=== PATIENT | female | born 1960 | race Caucasian/White ===

== ENCOUNTER 2017-03-29 10:33 | Emergency (ER) | payer MEDICAID ==
[2017-03-29] MEDS ORDERED: Sodium Chloride 0.9% 10 ML Syringe FLUSH PRN (11:16)
[2017-03-29] MEDS ORDERED: HYDROmorphone 1 MG/ML Syringe IVPUSH ONE (11:16)
[2017-03-29] MEDS ORDERED: Ondansetron 4 MG/2 ML SDV IVPUSH ONE (11:16)
[2017-03-29] MEDS ORDERED: Dicyclomine 10 MG Cap PO ONE (11:16)
--- NOTE | 2017-03-29 11:20 | EDM.PDOC ---
ED HPI GENERAL MEDICAL PROBLEM - General Chief Complaint: Abdominal Pain Stated Complaint: RIGHT SIDE PAIN Time Seen by Provider: 03/29/17 11:06 Source of Information: Reports: Patient History Limitations: Reports: No Limitations - History of Present Illness INITIAL COMMENTS - FREE TEXT/NARRATIVE: Patient is a 56-year-old female who presents to the ED complaining of right upper quadrant pain that radiates into her back off and on since Halloween. States pain comes about with eating. No specific food or drinks that escalate the discomfort. As of recent the pain is more constant and severe in nature. Currently the pain is described as a sharp discomfort rated a 10 out of 10. She was nauseated yesterday with one episode of emesis with no blood. She denies any acid reflux. There has been no episodes of diarrhea. Notes her bowel movements have been normal pattern formed with no blood. She denies any history of similar complaints. Denies any fever, chest pain, shortness of breath, dysuria, recent sick exposures, or any additional complaints. 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 ED EXAM, GI/ABD - Physical Exam Exam: See Below Exam Limited By: No Limitations General Appearance: Alert, WD/WN, Moderate Distress Ears: Hearing Grossly Normal Nose: Normal Inspection Throat/Mouth: Normal Voice, No Airway Compromise Neck: Normal Inspection, Supple Respiratory/Chest: No Respiratory Distress, Lungs Clear, Normal Breath Sounds, No Accessory Muscle Use Cardiovascular: Normal Peripheral Pulses, Regular Rate, Rhythm, No Murmur GI/Abdominal Exam: Normal Bowel Sounds, Soft, No Organomegaly, No Distention, Tender (RUQ) Back Exam: Normal Inspection, Full Range of Motion, CVA Tenderness (R). No: CVA Tenderness (L) Extremities: Normal Inspection, Non-Tender, No Pedal Edema, Normal Capillary Refill Neurological: Alert, Oriented, CN II-XII Intact, Normal Cognition, No Motor/ Sensory Deficits Psychiatric: Normal Affect, Normal Mood Skin Exam: Warm, Dry, Intact, Normal Color Course - Vital Signs Last Recorded V/S: Last Vital Signs Temp 96.7 F 03/29/17 10:44 Pulse 77 03/29/17 10:44 Resp 19 03/29/17 10:44 BP 134/68 03/29/17 10:44 Pulse Ox 95 03/29/17 10:44 - Orders/Labs/Meds Orders: Active Orders 24 hr Category Date Time Status Peripheral IV Care [RC] . DIRECTED Care 03/29/17 11:17 Active Abdomen 2V AP Flat Upright [CR] Stat Exams 03/29/17 11:16 Taken Peripheral IV Insertion Adult [OM.PC] Stat Oth 03/29/17 11:16 Ordered Labs: Laboratory Tests 03/29/17 03/29/17 03/29/17 Range/Units 10:48 10:48 10:55 WBC 8.70 (3.98-10.04) K/mm3 RBC 4.60 (3.98-5.22) M/mm3 Hgb 13.3 (11.2-15.7) gm/L Hct 40.1 (34.1-44.9) % MCV 87.2 (79.4-94.8) fl MCH 28.9 (25.6-32.2) pg MCHC 33.2 (32.2-35.5) g/dl RDW Std Deviation 41.6 (36.4-46.3) fL Plt Count 280 (182-369) K/mm3 MPV 11.9 (9.4-12.3) fl Neut % (Auto) 71.5 H (34.0-71.1) % Lymph % (Auto) 18.2 L (19.3-51.7) % Benzie % (Auto) 8.4 (4.7-12.5) % Eos % (Auto) 1.1 (0.7-5.8) Baso % (Auto) 0.6 (0.1-1.2) % Neut # (Auto) 6.22 H (1.56-6.13) K/mm3 Lymph # (Auto) 1.58 (1.18-3.74) K/mm3 Benzie # (Auto) 0.73 H (0.24-0.36) K/mm3 Eos # (Auto) 0.10 (0.04-0.36) K/mm3 Baso # (Auto) 0.05 (0.01-0.08) K/mm3 Sodium 138 (136-145) mEq/L Potassium 4.0 (3.5-5.1) mEq/L Chloride 101 (98-107) mEq/L Carbon Dioxide 23 (21-32) mEq/L Anion Gap 18.0 H (5-15) BUN 16 (7-18) mg/dL Creatinine 1.2 H (0.55-1.02) mg/dL Est Cr Clr Drug Dosing 44.66 mL/min Estimated GFR (MDRD) 46 (>60) mL/min BUN/Creatinine Ratio 13.3 L (14-18) Glucose 140 H (74-106) mg/dL Calcium 9.8 (8.5-10.1) mg/dL Total Bilirubin 0.5 (0.2-1.0) mg/dL Direct Bilirubin (0.0-0.2) mg/dl GGT (5-55) U/L AST 26 (15-37) U/L ALT 34 (14-59) U/L Alkaline Phosphatase 97 (46-116) U/L C-Reactive Protein 1.0 (<1.0) mg/dL Total Protein 9.0 H (6.4-8.2) g/dl Albumin 3.7 (3.4-5.0) g/dl Globulin 5.3 gm/dL Albumin/Globulin Ratio 0.7 L (1-2) Lipase 106 (73-393) U/L Urine Color Yellow (Yellow) Urine Appearance Clear (Clear) Urine pH 5.5 (5.0-8.0) Ur Specific [place] > or = 1.030 (1.005-1.030) Urine Protein 2+ H (Negative) Urine Glucose (UA) Negative (Negative) Urine Ketones 1+ H (Negative) Urine Occult Blood Negative (Negative) Urine Nitrite Negative (Negative) Urine Bilirubin 2+ H (Negative) Urine Urobilinogen 1.0 (0.2-1.0) Ur Leukocyte Esterase Negative (Negative) 03/29/17 Range/Units 10:55 WBC (3.98-10.04) K/mm3 RBC (3.98-5.22) M/mm3 Hgb (11.2-15.7) gm/L Hct (34.1-44.9) % MCV (79.4-94.8) fl MCH (25.6-32.2) pg MCHC (32.2-35.5) g/dl RDW Std Deviation (36.4-46.3) fL Plt Count (182-369) K/mm3 MPV (9.4-12.3) fl Neut % (Auto) (34.0-71.1) % Lymph % (Auto) (19.3-51.7) % Benzie % (Auto) (4.7-12.5) % Eos % (Auto) (0.7-5.8) Baso % (Auto) (0.1-1.2) % Neut # (Auto) (1.56-6.13) K/mm3 Lymph # (Auto) (1.18-3.74) K/mm3 Benzie # (Auto) (0.24-0.36) K/mm3 Eos # (Auto) (0.04-0.36) K/mm3 Baso # (Auto) (0.01-0.08) K/mm3 Sodium (136-145) mEq/L Potassium (3.5-5.1) mEq/L Chloride (98-107) mEq/L Carbon Dioxide (21-32) mEq/L Anion Gap (5-15) BUN (7-18) mg/dL Creatinine (0.55-1.02) mg/dL Est Cr Clr Drug Dosing mL/min Estimated GFR (MDRD) (>60) mL/min BUN/Creatinine Ratio (14-18) Glucose (74-106) mg/dL Calcium (8.5-10.1) mg/dL Total Bilirubin (0.2-1.0) mg/dL Direct Bilirubin 0.10 (0.0-0.2) mg/dl GGT 30 (5-55) U/L AST (15-37) U/L ALT (14-59) U/L Alkaline Phosphatase (46-116) U/L C-Reactive Protein (<1.0) mg/dL Total Protein (6.4-8.2) g/dl Albumin (3.4-5.0) g/dl Globulin gm/dL Albumin/Globulin Ratio (1-2) Lipase (73-393) U/L Urine Color (Yellow) Urine Appearance (Clear) Urine pH (5.0-8.0) Ur Specific [place] (1.005-1.030) Urine Protein (Negative) Urine Glucose (UA) (Negative) Urine Ketones (Negative) Urine Occult Blood (Negative) Urine Nitrite (Negative) Urine Bilirubin (Negative) Urine Urobilinogen (0.2-1.0) Ur Leukocyte Esterase (Negative) Meds: Medications Discontinued Medications Generic Name Dose Route Start Last Admin Trade Name Freq PRN Reason Stop Dose Admin Dicyclomine HCl 10 mg 03/29/17 11:16 03/29/17 11:36 Bentyl PO 03/29/17 11:17 10 mg ONETIME ONE Administration Hydromorphone HCl 0.5 mg 03/29/17 11:16 03/29/17 11:37 Dilaudid IVPUSH 03/29/17 11:17 0.5 mg ONETIME ONE Administration Sodium Chloride 1,000 mls @ 250 mls/hr 03/29/17 11:30 03/29/17 11:36 Normal Saline IV 250 mls/hr ASDIRECTED MITA Administration Ondansetron HCl 4 mg 03/29/17 11:16 03/29/17 11:35 Zofran IVPUSH 03/29/17 11:17 4 mg ONETIME ONE Administration Sodium Chloride 10 ml 03/29/17 11:16 03/29/17 11:38 Saline Flush FLUSH 10 ml ASDIRECTED PRN Administration Keep Vein Open - Re-Assessments/Exams Free Text/Narrative Re-Assessment/Exam: IV established with normal saline 250 mls per hour, Dilaudid 0.5 mg IVP, Zofran 4 mg IVP, and Bentyl 10 mg by mouth. Initial labs and studies include CBC, chem 14, lipase, UA, CRP, abdominal x-ray two-view, and limited abdominal ultrasound. In addition ordered GGT and direct bilirubin. Abdominal x-ray reviewed: Nonspecific air in stool patterns. Nothing acute noted. Final interpretation is pending. Labs reviewed: White blood cell count 8.70, hemoglobin 13.3, platelet counts 280 , neutrophil percentage 71.5, neutrophil #6.22, sodium 138, potassium 4.0, AG 18.0, creatinine 1.2, glucose 140, LFTs within normal limits, CRP 1.0, base 106. UA 2+ protein, ketones 1+, nitrates and leukocyte esterase negative, bilirubin 2 +. Reassessment, patient states pain has just improved with the above therapies. Ultrasound impression: Multiple gallstones with gallbladder wall thickening. Mildly dilated common bile duct is noted. Findings are suspicious for chronic cholecystitis. No additional abnormalities appreciated on right upper quadrant abdominal ultrasound. 03/29/17 13:[address] 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 Requests followup with General Surgeon in the Clinic this week and schedule for surgery. No surgery at this point since pain is controlled. Will arrange an appointment for the patient. GGT and direct bilirubin WNL. 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 Lagos office to schedule an appt. They will attempt to fit her in tomorrow. Will discharge patient home with instructions as documented. Departure - Departure Time of Disposition: 14:08 Disposition: Home, Self-Care 01 Condition: Good Clinical Impression: Chronic cholecystitis - Discharge Information Prescriptions: Acetaminophen/HYDROcodone [[place] 325-5 MG] 1 tab PO Q6H PRN #15 tablet PRN Reason: Pain (Severe 7-10) Dicyclomine [Bentyl] 20 mg PO BID PRN #10 tablet PRN Reason: Pain (Severe 7-10) Ondansetron [Zofran ODT] 4 mg PO Q6H PRN #15 tab.dis PRN Reason: Nausea/Vomiting Instructions: Nausea and Vomiting, Adult, [id number], Abdominal Pain, Adult, [id number], Pain Medicine Instructions, [id number] Referrals: Hunter Alvarado MD [Physician] - Forms: ED Department Discharge Additional Instructions: As discussed you have chronic cholecystitis. Will have you call Dr. Lagos office tomorrow morning to see if you can get in with him during his busy clinic to be evaluated. If unable to get in tomorrow please make an appt to be evaluated at the earliest time. In addition you can call Dr. Cohn office to schedule an appt to be evaluated as well if unable to get in with Dr. Alvarado. Treatment at this point is [place] 5-525 one tab every 6 hours as needed for pain , Zofran 4 mg ODT 1 tab every 6 hours as needed for nausea/vomiting, and Bentyl 20 mg one tab twice a day as needed for severe pain. Stick with a low residue diet refraining from any foods or drinks that may aggravate your symptoms. This includes fatty foods, dairy products, and lettuce. Please refrain from driving since receiving a sedative medication while in the ED. Return to the ED as needed for any new or worsening symptoms. - My Orders Last 24 Hours: My Active Orders 03/29/17 11:16 Abdomen 2V AP Flat Upright [CR] Stat Peripheral IV Insertion Adult [OM.PC] Stat 03/29/17 11:17 Peripheral IV Care [RC] . DIRECTED - Assessment/Plan Last 24 Hours: My Active Orders 03/29/17 11:16 Abdomen 2V AP Flat Upright [CR] Stat Peripheral IV Insertion Adult [OM.PC] Stat 03/29/17 11:17 Peripheral IV Care [RC] . DIRECTED
[2017-03-29] MEDS ORDERED: Sodium Chloride 0.9% 1,000 ML IV SCH (11:30)
--- NOTE | 2017-03-29 13:02 | US ---
Limited abdominal ultrasound: Multiple real-time images were obtained of the upper right abdomen. Liver shows no focal parenchymal abnormality. Inferior vena cava is patent. Multiple gallstones are seen within the gallbladder. Gallbladder wall shows some thickening. Common bile duct is mildly dilated at 1.0 cm. Visualized portions of the pancreas are within normal limits. Right kidney shows no hydronephrosis or mass and has a length of 9.8 cm. Impression: 1. Multiple gallstones with gallbladder wall thickening. Mildly dilated common bile duct is noted. Findings are suspicious for chronic cholecystitis. 2. No additional abnormality is appreciated on right upper quadrant abdominal ultrasound. Diagnostic code #3
--- NOTE | 2017-03-30 11:00 | CR ---
Abdomen: Supine and upright views of the abdomen were obtained. Comparison: No previous study. Bowel gas pattern appears normal. Calcifications are seen within the pelvis which are compatible with phleboliths. Bony structures show mild degenerative change within the spine. Impression: 1. Incidental findings. Diagnostic code #2
== END 2017-03-29 14:50 | disposition home or self-care (01) ==
LOC: JD.ED 10:33
DX: K81.1 Chronic cholecystitis (principal); F17.210 Nicotine dependence, cigarettes, uncomplicated
CPT/HCPCS: 36415; 74020; 76705; 80053; 81003; 82248; 82977; 83690; 85025; 86140; 96361; 96374; 96375; 99285; A9270; J1170; J2405; J7040; J7050; 99284

== ENCOUNTER 2021-05-27 09:34 | Day surgery (SDC) | payer MEDICAID ==
[2021-05-27] MEDS: Polymyxin B/Trimethoprim 10 ML Bottle EYELF SCH ×3 (08:48→10:31)
[2021-05-27] MEDS: Brimonidine 0.2% Ophth Soln 5 ML Bottle EYELF SCH ×3 (08:58→10:31)
[2021-05-27] MEDS: Phenylephrine 2.5% Ophth Soln 2 ML Bot EYELF SCH ×5 (09:02→10:12)
[2021-05-27] MEDS: Tropicamide 1% Ophth Soln 15 ML Bottle EYELF SCH ×4 (09:06→09:38)
[~2021-05-27 09:34] MED LIST: Cefuroxime 10 MG/ML SYRINGE EYELF SCH; Lidocaine 1% PF 2 ML SDV INJECT SCH; Pilocarpine 4% Ophth Soln 15 ML Bot EYELF SCH
[2021-05-27] MEDS: Tetracaine HCl/PF 0.5% 4 ML Bottle EYEBOTH SCH ×4 (09:52→10:18)
== END 2021-05-27 10:43 | disposition home or self-care (01) ==
LOC: JD.SDS 09:34
PROVIDERS: ATTEND Ophthalmology
DX: H25.813 Combined forms of age-related cataract, bilateral (principal); H16.223 Keratoconjunctivitis sicca, not specified as Sjogren's, bilateral; H02.831 Dermatochalasis of right upper eyelid; H02.834 Dermatochalasis of left upper eyelid; Z87.891 Personal history of nicotine dependence; Z79.899 Other long term (current) drug therapy
CPT/HCPCS: 66984; J0697; C1780

== ENCOUNTER 2021-07-03 15:32 | Day surgery (SDC) | payer BC, MEDICAID ==
[2021-07-03] MEDS: Polymyxin B/Trimethoprim 10 ML Bottle EYERT SCH ×3 (14:09→15:39)
[2021-07-03] MEDS: Brimonidine 0.2% Ophth Soln 5 ML Bottle EYERT SCH ×3 (14:16→15:39)
[2021-07-03] MEDS: Phenylephrine 2.5% Ophth Soln 2 ML Bot EYERT SCH ×5 (14:21→15:22)
[2021-07-03] MEDS: Tropicamide 1% Ophth Soln 15 ML Bottle EYERT SCH ×4 (14:26→15:04)
[2021-07-03] MEDS: Tetracaine HCl/PF 0.5% 4 ML Bottle EYEBOTH SCH ×4 (15:11→15:27)
[~2021-07-03 15:32] MED LIST changes: -Cefuroxime 10 MG/ML SYRINGE EYELF SCH; +Cefuroxime 10 MG/ML SYRINGE EYERT SCH; -Pilocarpine 4% Ophth Soln 15 ML Bot EYELF SCH; +Pilocarpine 4% Ophth Soln 15 ML Bot EYERT SCH
== END 2021-07-03 15:47 | disposition home or self-care (01) ==
LOC: JD.SDS 15:32
PROVIDERS: ATTEND Ophthalmology
DX: H25.811 Combined forms of age-related cataract, right eye (principal); E05.90 Thyrotoxicosis, unspecified without thyrotoxic crisis or storm; Z87.891 Personal history of nicotine dependence; Z79.899 Other long term (current) drug therapy
CPT/HCPCS: 66984; C1780; J0697